=== PATIENT | female | born 1965 | race Caucasian/White ===

== ENCOUNTER → 2020-11-23 | Day surgery (SDC) | payer OTHER ==
[~2020-11-23] MED LIST: AFRIN15 ML INH; ASPIRIN81 MG PO; CITALOPRAM HBR20 MG PO; DONNATAL TABL16.2 MG PO; GLUCAGON FOR INJ 1 MG VIAL ONE; HYDROCORTISONE114 GM TOP; KRILL OIL 1,001 EACH PO; MULTI-VITAMIN1 EACH PO; OMEPRAZOLE40 MG PO; PROPOFOL IV EMULSION 10 MG/ML 20 ML VIAL ONE; TEGRETOL XR200 MG PO; VITAMIN C500 MG PO; VITAMIN D3 PO; XANAX1 MG PO
[2020-11-23 14:35] VITALS: BP 136/70
== END | disposition home or self-care (01) ==
LOC: OR 11:21
PROVIDERS: ATTEND Internal Medicine Gastroenterology
DX: Z12.11 Encounter for screening for malignant neoplasm of colon (principal); D12.4 Benign neoplasm of descending colon; K57.30 Diverticulosis of large intestine without perforation or abscess without bleeding; K64.8 Other hemorrhoids; K58.0 Irritable bowel syndrome with diarrhea; K21.9 Gastro-esophageal reflux disease without esophagitis; E73.9 Lactose intolerance, unspecified; E03.9 Hypothyroidism, unspecified; Z88.1 Allergy status to other antibiotic agents; Z88.2 Allergy status to sulfonamides; Z01.810 Encounter for preprocedural cardiovascular examination; Z79.82 Long term (current) use of aspirin; Z68.38 Body mass index [BMI] 38.0-38.9, adult; Z80.0 Family history of malignant neoplasm of digestive organs; Z83.79 Family history of other diseases of the digestive system
CPT/HCPCS: 45385; 93005; J1610; J2704; 45378

== ENCOUNTER 2025-02-05 07:36 | Emergency (ER) | payer OTHER ==
[~2025-02-05] VITALS: Ht 175.3 cm; Wt 118.8 kg
[~2025-02-05 07:36] MED LIST changes: -GLUCAGON FOR INJ 1 MG VIAL ONE; -PROPOFOL IV EMULSION 10 MG/ML 20 ML VIAL ONE
[2025-02-05] MEDS: IBUPROFEN 600 MG TAB PO STA (08:42)
[2025-02-05] MEDS: FOSFOMYCIN TROMETHAMINE 3 GM PACKET PO ONE (08:42)
[2025-02-05 08:48] LABS: LEUKOCYTE ESTERASE ,URINE LARGE (NEGATIVE)
[2025-02-05 08:49] LABS: PROTEIN,URINE DIPSTICK 2+ (NEGATIVE); URINE UROBILINOGEN 0.2 mg/dL (0.2 - 1)
[2025-02-05] MEDS ORDERED: CIPRO500 MG PO (09:01)
[2025-02-05] MEDS ORDERED: PYRIDIUM100 MG PO (09:01)
[2025-02-05 09:13] LABS: EPITHELIAL CELLS,URINE FEW /LPF; WBC,URINE (MAN) >50 /HPF (0-5)
[2025-02-05 09:16] LABS: CORONAVIRUS COVID-19 AG NEGATIVE (NEGATIVE)
[2025-02-05 09:40] VITALS: PULSE 78; RESP 16; TEMP 98.3; O2SAT 98
== END 2025-02-05 09:45 | disposition home or self-care (01) ==
LOC: ER 07:38
DX: R30.0 Dysuria (principal); N39.0 Urinary tract infection, site not specified; G40.909 Epilepsy, unspecified, not intractable, without status epilepticus; F41.9 Anxiety disorder, unspecified; Z11.52 Encounter for screening for COVID-19
CPT/HCPCS: 81001; 87086; 87186; 99283